=== PATIENT | male | born 1970 | race Caucasian/White ===

== ENCOUNTER 2024-08-25 16:36 | Emergency (ER) | payer BC ==
[~2024-08-25] VITALS: Ht 167.6 cm; Wt 77.1 kg
[2024-08-25 17:04] VITALS: BP 135/68; TEMP 98.8; O2SAT 99
[2024-08-25] MEDS ORDERED: LIDOCAINE HCL/MPF 1% 30 ML VIAL IJ ONE (18:46)
[2024-08-25] MEDS ORDERED: LIDOCAINE 0.5% HCL 50 ML VIAL ONE (18:51)
[2024-08-25] MEDS ORDERED: ACETAMINOPHEN ES 500 MG TABLET ONE (18:51)
[2024-08-25] MEDS: ACETAMINOPHEN ES 500 MG TABLET PO ONE (18:58)
[2024-08-25] MEDS: LIDOCAINE 1% INJ 50 ML MDV IJ ONE (18:59)
[2024-08-25] MEDS ORDERED: ACET-2030 PO (20:12)
[2024-08-25] MEDS ORDERED: AMOX-430 PO (20:12)
[2024-08-25] MEDS ORDERED: RABIES VACCINE (PCEC)/PF 1 EA KIT IM ONE (20:25)
[2024-08-25] MEDS: RABIES VACCINE (PCEC)/PF 1 EA KIT IM ONE (20:46)
[2024-08-25] MEDS: RABIES IMMUNE GLOBULIN/PF 150 UNIT/ML VIAL IM ONE (21:12)
== END 2024-08-25 21:31 | disposition home or self-care (01) ==
LOC: ER 17:09
DX: S61.011A Laceration without foreign body of right thumb without damage to nail, initial encounter (principal); Z60.2 Problems related to living alone; W54.0XXA Bitten by dog, initial encounter; Y93.89 Activity, other specified; Y92.89 Other specified places as the place of occurrence of the external cause; Y99.8 Other external cause status
CPT/HCPCS: 12001; 73140; 90375; 90471; 90675; 96372; 99284; J3490